=== PATIENT | female | born 1990 | race Caucasian/White ===

== ENCOUNTER 2016-11-30 13:25 | Emergency (ER) | payer SELFPAY ==
[~2016-11-30 13:25] MED LIST: Iopamidol 370 76% 100 ML VIAL ONE; Sodium Chloride 0.9% 1,000 ML BAG ONE; Sodium Chloride 0.9% 100 ML BAG ONE
[2016-11-30] MEDS ORDERED: Ondansetron HCl/PF 4 MG/2 ML Vial ONE (14:22)
[2016-11-30 14:28] LABS: #Eosinphils 0.2 thou/uL (0.0-0.7); #Lymphocytes 1.6 thou/uL (1.20-3.40); #Monocytes 0.7 thou/uL (0.11-0.59); #Neutrophils 8.9 thou/uL (1.40-6.50); %Basophils 0.4 % (0.0-1.0); %Eosinophils 1.4 % (0.0-10.0); %Lymphocytes 14.1 % (21.0-51.0); %Neutrophils 78.1 % (42.0-75.0); Hemoglobin 11.9 g/dL (12.0-16.0); Mean Corpuscular HGB CONC 33.5 g/dL (32.0-36.0); Mean Corpuscular Hemoglobin 30.5 pg (27.0-31.0); Mean Platelet Volume 8.6 fL (7.4-10.4); Platelet Count 161 thou/uL (130-400); RBC Distribution Width 11.6 % (11.5-14.5); Red Blood Cell (RBC) Count 3.89 mill/uL (4.20-5.40); White Blood Cell (WBC) Count 11.4 thou/uL (4.8-10.8)
[2016-11-30 14:47] LABS: ALT (SGPT) 14 U/L (0-55); AST (SGOT) 8 U/L (5-34); Albumin 3.6 g/dL (3.5-5.0); Alkaline Phosphatase 58 U/L (40-150); Amylase 19 U/L (25-125); Anion Gap 12 mmol/L (10-20); BUN (Urea Nitrogen) 7 mg/dL (7.0-18.7); Bilirubin, Total 0.5 mg/dL (0.2-1.2); Calc. Creatinine Clearance 0 mL/min (70-130); Calcium 8.8 mg/dL (7.8-10.44); Carbon Dioxide 25 mmol/L (22-29); Chloride 104 mmol/L (98-107); Estimated GFR-MDRD Greater than 90; Globulin 2.9 g/dL (2.4-3.5); Glucose 94 mg/dL (70-105); Potassium 4.1 mmol/L (3.5-5.1); Protein, Total 6.5 g/dL (6.0-8.3); Sodium 137 mmol/L (136-145)
[2016-11-30 14:48] LABS: Lipase 4 U/L (8-78)
[2016-11-30 15:35] LABS: Bilirubin Negative (Negative); Blood, Urine Negative (Negative); Clarity Clear (Clear); Glucose, Urine (Dipstick) Negative (Negative); Leukocyte Small (Negative); Nitrite Negative (Negative); Protein, Urine (Dipstick) Negative (Neg-Trace); Specific Gravity, Urine 1.015 (1.005-1.030); pH, Urine 8.5 (5.0-9.0)
[2016-11-30 15:39] LABS: Bacteria/HPF None Seen HPF (None Seen); Other Microscopic Description C&S SET UP; RBC/HPF None Seen HPF (0-3); Squamous Epithelial 0-3 HPF (0-3)
[2016-11-30 15:43] LABS: BHCG - Serum NEGATIVE (NEGATIVE); Pregs Control Background? CLEAR/WHITE (CLR/WHITE); Pregs Control Bar Appear? YES (CONTROL BAR)
--- NOTE | 2016-11-30 17:45 | CT ---
CT ABDOMEN AND PELVIS WITH CONTRAST 11/30/16 HISTORY: Right upper quadrant pain for several days. COMPARISON: None. TECHNIQUE: CT abdomen and pelvis was performed after the intravenous and oral administration of contrast. FINDINGS: The lung bases are clear. No pericardial effusion. The liver is normal. There is a large partially peripherally calcified gallstone in the fundus of th e gallbladder. No pericholecystic fluid. No intrahepatic or extrahepatic biliary dilatation. The pancreas is unremarkable. Spleen and adrenal glands are normal. The kidneys are unremarkable. The appendix is visualized in its entirety and is normal. There is abnormal elevation of the right ovary relative to the left with some peripheral stranding. There is some small volume stranding along the falciform ligament. IMPRESSION: 1. Findings concerning for intermittent torsion/detorsion of the right ovary with enlargement o f the right ovary with superolateral displacement. 2. Some mild stranding along the falciform ligament with a peripherally calcified stone within the gallbladder fundus which is otherwise unremarkable. It is unknown if this is inflammatory fluid which has creeped up along the falciform ligament from the right adnexa or if this can be a sequela of recent biliary colic. 3. Normal appendix. POS: MARIAH
[2016-11-30] MEDS ORDERED: Morphine Sulfate 2 MG/ML SYRINGE ONE (18:02)
[2016-11-30] MEDS ORDERED: Ketorolac Tromethamine 30 MG/ML VIAL ONE (18:02)
[2016-11-30] MEDS ORDERED: Piperacillin/Tazobactam 4.5 GM VIAL ONE (18:02)
== END 2016-11-30 18:18 | disposition short-term general hospital (02) ==
LOC: MADERS 13:25
DX: K81.0 Acute cholecystitis (principal); N83.511 Torsion of right ovary and ovarian pedicle; F17.210 Nicotine dependence, cigarettes, uncomplicated
CPT/HCPCS: 36415; 74177; 80053; 81003; 81015; 82150; 83690; 84703; 85025; 87086; 96374; 96375; 96376; J1885; J2270; J2405; J2543; J7050